=== PATIENT | male | born 2000 | race Caucasian/White ===

== ENCOUNTER 2025-02-27 15:45 | Emergency (ER) | payer SELFPAY ==
--- NOTE | ~2025-02-27 | XR_ITS ---
CLINICAL HISTORY: pain, injury Exam: AP, lateral, and spot lateral views of the lumbar spine. Comparison: None provided. Findings: Bony alignment of the lumbar vertebral bodies is anatomic. No fracture. Disc space heights are well preserved. Facet joints are unremarkable. Sacroiliac joints are unremarkable. Impression: No fracture. This document has been electronically signed by: Carlyle Todd MD on 02/27/2025 16:47:04
[2025-02-27 16:09] VITALS: BP 164/70; PULSE 88; RESP 16; TEMP 36.4; O2SAT 98; BMI 35.4
--- NOTE | 2025-02-27 16:11 | ED_ITS ---
HPI - General Adult General Chief complaint: Back Pain/Injury Stated complaint: back pain worsen V/N Time Seen by Provider: 02/27/25 17:16 Source: patient and other (patient's partner) Mode of arrival: ambulatory Limitations: no limitations History of Present Illness ED Provider: Barb Woodard PA-C HPI narrative: Patient is a 25 year old assigned male at , now female, with no reported medical history presenting to the emergency department today with back pain. Patient states that she has been having issues with back pain since July of 2024 but the last few days it has been significantly worse. Patient denies any other complaints at this time. Relieving factors: none Exacerbating factors: movement Treatments prior to arrival: other (Excedrin with no relief) Related Data Previous Rx's ?Medication ?Instructions ?Recorded cyclobenzaprine 5 mg tablet 5 mg PO TID PRN muscle spa sm 7 02/27/25 days #21 tabs naproxen 500 mg tablet 500 mg PO BID 7 days #14 tab s 02/27/25 omeprazole 20 mg capsule,delayed 20 mg PO DAILY #14 ca ps 02/27/25 release prednisone 20 mg tablet 20 mg PO DAILY 7 days #7 tab s 02/27/25 Allergies Allergy/AdvReac Type Severity Reaction Status Date / Time shellfish derived (shellfish) Allergy Anaphylaxis Verified 02/27/25 16:12 Review of Systems Constitutional: Constitutional: Reports as per HPI Eyes: Eyes: Reports as per HPI ENT: Reports as per HPI Cardiovascular: Cardiovascular: Reports as per HPI Respiratory: Respiratory: Reports as per HPI Gastrointestinal: Gastrointestinal: Reports as per HPI Genitourinary: Genitourinary: Reports as per HPI Musculoskeletal: Musculoskeletal: Reports back pain Integumentary/Breasts: Skin/Breast: Reports as per HPI Neurologic: Reports as per HPI Psychiatric: Psychiatric: Reports as per HPI Endocrine: Endocrine: Reports as per HPI Hematologic/Lymphatic: Hematologic/Lymphatic: Reports as per HPI Allergic/Immunologic: Allergic/Immunologic: Reports as per HPI PMFSH Past Medical History Attestation statement: The following information was validated with the patient. (all information validated with the patient's partner) Source: old records reviewed, nursing notes reviewed and other (patient's partner provided additional history and confirmed the history provided by the patient. ) Social History Social History Advance Directives: No Advance Directives Information Provided: No Do you have a plan to hurt others: No Plan Physical Exam ED Vital Signs: Vital Signs - 24 hr 02/27/25 16:09 02/27/25 17:29 Temperature 97.5 F 97.5 F Pulse Rate 88 88 Respiratory Rate 16 16 Blood Pressure 164/70 H 164/70 H Pulse Oximetry 98 98 Oxygen Delivery Method Room Air Room Air BMI result Body Mass Index 35.4 Const General: cooperative, no acute distress, alert and awake Nutritional Appearance: well nourished Orientation/consciousness: patient oriented x3 HENMT Head: Yes normal to inspection and Yes atraumatic Ears: hearing grossly normal bilaterally and external ears normal General nose exam: Normal external nose present, no nasal discharge noted and no epistaxis Face and sinus: Yes normal facial exam, No abrasion and No laceration Mouth: Normal oral and palatal mucosa present, no drooling and no muffled voice Eyes General: appearance normal, both eyes and all related structures Periorbital: periorbital findings normal Eyelids: Yes eyelids normal Conjunctivae: conjunctivae normal Pupils: Equal, round and reactive pupils present EOM: EOMs intact bilaterally Neck Neck: Yes normal visual inspection and Yes full ROM Resp Effort & Inspection: normal respiratory effort and able to speak in complete sentences Neuro General: patient oriented x3, moves all extremities and CN's II-XI intact bilaterally Cranial nerves: Yes Equal, round and reactive pupils present Cognition (Neuro): normal cognition Extrem General: Yes normal to inspection, Yes full ROM and Yes capillary refill normal Psych Appearance: grossly normal Mental Status: mental status grossly normal Affect: normal affect Attitude: cooperative Thought process: Normal thought process present Thought content: Normal thought content present Insight: Good insight present (Psych) Course Course Course Narrative: Rapid medical examination performed in triage by Barb Woodard PA-C. Patient is a 25 year old male, now female, presenting to the emergency department with low back pain. Patient states that over the last 7 months she has had back pain but over the last few days it has been worse and spreads into her legs / buttock. Detailed physical exam and review of systems are deferred to the electrical systems designer. Imaging ordered. Patient placed back in the waiting room pending room availability and results. Medical Decision Making Medical Decision Making MDM Narrative: Patient is a 25 year old assigned male at , now female, with no reported medical history presenting to the emergency department today with back pain. Patient's physical exam was unremarkable. Patient's lumbar x-ray showed no acute process. Patient's clinical presentation is most consistent with a bulging disc vs. lumbar back pain vs. lumbar back strain. I explained my physical exam findings as well as all test results to the patient and the patient's partner. I answered all questions asked by the patient and the patient's partner. I stressed the importance of the patient taking her medication as directed (either prescribed or as the over the counter packaging recommends). I stressed the importance of the patient following up with her primary care provider and a strategic communications specialist. I stressed the importance of the patient returning to the emergency department immediately if her symptoms were to worsen or if she were to develop any dizziness, shortness of breath, difficulty breathing, chest pain, blurry vision, loss of vision, nausea, vomiting, abdominal pain, fever, chills, back pain, or any other complaints. Patient and the patient's partner verbalized agreement and understanding with this treatment plan and discharge. Differential Diagnosis Differential Diagnoses: The differential diagnosis associated with the presentation includes Back pain Back strain Disc herniation Bulging disc Sciatica Admission/Observation Consideration of admission/observation: Escalation of care including admission/observation considered Patient would have been admitted to the hospital had her work up had any findings where hospital admission was appropriate and her clinical presentation warranted hospital admission. Independent Interpretation I performed an independent interpretation of an: Plain X-Ray Interpretation: My interpretation is in agreement with the radiologist's impression of this imaging study. CLINICAL HISTORY: pain, injury Exam: AP, lateral, and spot lateral views of the lumbar spine. Comparison: None provided. Findings: Bony alignment of the lumbar vertebral bodies is anatomic. No fracture. Disc space heights are well preserved. Facet joints are unremarkable. Sacroiliac joints are unremarkable. Impression: No fracture. This document has been electronically signed by: Carlyle Todd MD on 02/27/2025 16:47:04 Dictated By: Carlyle Todd MD Signed By: Electronically signed by Carlyle Todd MD 02/27/25 [id number] Radiology Impression Discussion of test interpretation with radiology: I have reviewed the radiologist's reading. Independent Historian Clinical information obtained from an independent historian. History obtained from or confirmed by: Other (patient's partner provided additional history and confirmed the history provided by the patient. ) Discharge Plan Discharge Clinical Impression: Back pain Patient Disposition: Home, Self-Care Instructions: Acute Low Back Pain (ED) Additional Instructions: Your x-ray today showed no acute process. I am suspicious this is a nerve issue originating in your back from either a bulging disc or inflammation. Take your medication as prescribed - wait to take your dose of omeprazole until 30 minutes after you take the rest of the medication. Follow up with a strategic communications specialist. IF you are prescribed medications and/or you are taking over the counter medications - it is very important you continue to do so as prescribed / directed unless told otherwise. Follow up with a primary care provider. Return to the emergency department immediately if your symptoms worsen or if you develop any numbness, tingling, dizziness, shortness of breath, difficulty breathing, chest pain, blurry vision, loss of vision, nausea, vomiting, abdominal pain, fever, chills, back pain, or any other complaints. If you do not have a primary care provider - call any of the below numbers to establish and follow up with a primary care provider. [facility] Primary Care ([place]) [phone] [place] [address], [address] [facility] Primary Care ([address] [place]) [phone] [place] [address], [address] [facility], [address] [facility] Primary Care ([address] [place]) [phone] [place] [address], [address] [facility], [address] [facility] Primary Care ([place]) [phone] [place] [address] 2 [facility], [address] [facility] Family Medicine [phone] [place] [address], [address] Please see the information below about our Patient Portal. If you are not yet enrolled in the [facility] Patient Portal, you will receive an enrollment email invitation following your visit to any [facility] setting. You may also self-enroll in the Patient Portal by visiting our website: [email or web address] The following information is required to access the Patient Portal: - Your [facility] Medical Record Number - Your personal home email address (must match what is in your electronic medical record, Registration staff can assist with this) - Name - Date of Capabilities of the Patient Portal: - Message some providers - View upcoming appointments - Access your health summary, medical history, and visit history - View current conditions and allergies - View procedure and lab results - View your medications, including guidelines, side effects, and precautions - Complete pre-appointment questionnaires requested by your provider - Ready summary reports of your office visits and procedures To access the Patient Portal Mobile Odin, follow these directions: - Search [facility] in the Doin Store or Google Simple Store - Download the Odin - Search for [facility] - Enter your login/password Prescriptions: New cyclobenzaprine 5 mg tablet 5 mg PO TID PRN (Reason: muscle spasm) 7 Days Qty: 21 0RF prednisone 20 mg tablet 20 mg PO DAILY 7 Days Qty: 7 0RF naproxen 500 mg tablet 500 mg PO BID 7 Days Qty: 14 0RF omeprazole 20 mg capsule,delayed release(DR/EC) 20 mg PO DAILY Qty: 14 0RF Referrals: [facility] Spine [facility] [Provider Group, Neurosurgery] Referral Note: Call to establish and follow up with a strategic communications specialist if your pain continues. Stand Alone Forms: Work/School Release Interventions: ED Discharge Assessment Last Done: 02/27/25 17:29 Discharge Date/Time: 02/27/25 17:30 Print Language: Serbian
[2025-02-27 17:29] VITALS: BP 164/70; PULSE 88; RESP 16; TEMP 36.4; O2SAT 98
== END 2025-02-27 17:30 | disposition home or self-care (01) ==
PROVIDERS: Emergency Provider Emergency Medicine Emergency Medical Services
DX: M54.50 Low back pain, unspecified (principal)
CPT/HCPCS: 72100; 99282; 99283

== ENCOUNTER → 2025-02-27 16:12 | Outpatient (BNV) | payer SELFPAY | PROVIDERS: Visit Provider Radiology Diagnostic Radiology | DX: M54.50 Low back pain, unspecified (principal) | CPT/HCPCS: 72100 ==

== ENCOUNTER 2025-03-29 23:05 | Emergency (ER) | payer SELFPAY ==
[2025-03-29 23:30] VITALS: BP 144/76; PULSE 78; RESP 18; TEMP 36.8; O2SAT 96; BMI 37.8
--- NOTE | 2025-03-30 00:12 | ED.ALLEREA ---
HPI - Allergic Reaction General Chief complaint: Allergic Reaction Stated complaint: allergic reaction Time Seen by Provider: 03/30/25 00:09 History of Present Illness ED Provider: Bhupinder Ayala MD HPI narrative: 25-year-old transgender female with a history of anaphylaxis no longer has EpiPen. Patient is currently taking spironolactone him on few other medications mostly psychiatric. No obvious recent exposures but several hours ago started feeling subjective tightness of the throat itchy rash of the neck. No smoking history denies asthma or bronchospasm in the past Related Data Previous Rx's ?Medication ?Instructions ?Recorded cyclobenzaprine 5 mg tablet 5 mg PO TID PRN muscle spasm 7 02/27/25 days #21 tabs naproxen 500 mg tablet 500 mg PO BID 7 days #14 tabs 02/27/25 omeprazole 20 mg capsule,delayed 20 mg PO DAILY #14 caps 02/27/25 release prednisone 20 mg tablet 20 mg PO DAILY 7 days #7 tabs 02/27/25 epinephrine 0.3 mg/0.3 mL 0.3 mg (0.3 mL) IM Q10M PRN 03/30/25 injection, auto-injector (EpiPen anaphylaxis #2 ea 2-Jono) prednisone 20 mg tablet 60 mg (3 x 20 mg) PO DAILY 2 days 03/30/25 #6 tabs Allergies Allergy/AdvReac Type Severity Reaction Status Date / Time shellfish derived (shellfish) Allergy Anaphylaxis Verified 03/29/25 23:32 [facility] Social History Social History Smoked in Last 30 Days: No Advance Directives: No Physical Exam ED Exam Exam: EXAM: Gen: Alert, awake, well appearing, well hydrated. Head: Atraumatic Eyes: Anicteric, Normal conjunctiva. ENT: Moist mucosa, no pallor. ?No objective oropharyngeal or lingual edema clear patent oropharynx midline uvula without edema. No stridor Neck: Supple. Skin: Mostly resolving very subtle erythema or splotchy induration of the neck without overt hives no other rash Respiratory: Perhaps scant expiratory only right-sided wheeze very very subtle Breathing comfortably, No distress.Clear to auscultation bilaterally, symmetric chest expansion, No wheeze, rales, ronchi. Cardiovascular: Regular rate and rhythm. No murmurs or rub. Well perfused periphery, warm extremities. No edema. ? Abdominal: No focal tenderness. Soft, no objective distension. No palpable masses or obvious organomegaly. ?No guarding, no rebound tenderness or other peritoneal findings. : No flank tenderness. Neuro: Alert. Gross movement of all extremities intact. ? Psych: Calm. Cooperative. MSK: No grossly visible deformity. Vital signs: See flowsheet Vital Signs: Vital Signs - 24 hr 03/29/25 23:30 03/30/25 00:25 Temperature 98.2 F Pulse Rate 78 84 Respiratory Rate 18 19 Blood Pressure 144/76 H 139/81 Pulse Oximetry 96 98 Oxygen Delivery Method Nasal Cannula Room Air BMI result Body Mass Index 37.8 Medications Administered Discontinued Medications Generic Name Dose Route Start Last Admin Trade Name Freq PRN Reason Stop Dose Admin Diphenhydramine HCl 50 mg 03/30/25 00:12 03/30/25 00:22 Diphenhydramine Hcl 25 Mg Capsule PO 03/30/25 00:13 50 mg ONCE ONE Administration Famotidine 20 mg 03/30/25 00:12 03/30/25 00:22 Famotidine 20 Mg Tablet PO 03/30/25 00:13 20 mg ONCE ONE Administration Prednisone 60 mg 03/30/25 00:12 03/30/25 00:22 Prednisone 20 Mg Tablet PO 03/30/25 00:13 60 mg ONCE ONE Administration Medical Decision Making Medical Decision Making MDM Narrative: 25-year-old transgender female is no obvious recent exposures spontaneous symptoms suggestive of allergic reaction. No distress hypoxia tachycardia or objective signs of upper airway or mouth/mucosal membrane edema. Empiric treatment with steroid antihistamine for possible mild moderate allergic reaction. Refill EpiPen for home brief monitoring discharge Discharge Plan Discharge Clinical Impression: Allergic reaction Patient Disposition: Home, Self-Care Instructions: General Allergic Reaction (ED) Additional Instructions: You had mild/moderate allergic reaction with skin rash subjective difficulty breathing We have repleted your epinephrine injectable Dosepaks you can carry these around with you in case you develop anaphylaxis symptoms. We have prescribed 2 more days of prednisone we recommend you take cetirizine [id number] antihistamine that does not sedate you over the next 2 days 10 mg per day. Prescriptions: New prednisone 20 mg tablet 60 mg PO DAILY 2 Days Qty: 6 0RF epinephrine [EpiPen 2-Jono] 0.3 mg/0.3 mL auto-injector 0.3 mg IM Q10M PRN (Reason: anaphylaxis) Qty: 2 0RF Rx Instructions: for 2 doses No Action cyclobenzaprine 5 mg tablet 5 mg PO TID PRN (Reason: muscle spasm) 7 Days Qty: 21 0RF prednisone 20 mg tablet 20 mg PO DAILY 7 Days Qty: 7 0RF naproxen 500 mg tablet 500 mg PO BID 7 Days Qty: 14 0RF omeprazole 20 mg capsule,delayed release(DR/EC) 20 mg PO DAILY Qty: 14 0RF Print Language: [place] Citizen
[2025-03-30 00:25] VITALS: BP 139/81; PULSE 84; RESP 19; O2SAT 98
[2025-03-30 01:50] VITALS: BP 139/81; PULSE 84; RESP 19; TEMP 36.7; O2SAT 98
== END 2025-03-30 01:52 | disposition home or self-care (01) ==
PROVIDERS: Emergency Provider Emergency Medicine
DX: L23.9 Allergic contact dermatitis, unspecified cause (principal); R21 Rash and other nonspecific skin eruption
CPT/HCPCS: 99283; 99284

== ENCOUNTER 2025-05-02 20:37 | Emergency (ER) | payer OTHER, SELFPAY ==
[2025-05-02 20:43] VITALS: BP 140/85; PULSE 110; RESP 16; TEMP 36.1; O2SAT 98; BMI 38.4
--- NOTE | 2025-05-02 20:48 | ECG_ITS ---
Test Reason : QTC CHECK Blood Pressure : */* mmHG Vent. Rate : 108 BPM Atrial Rate : 108 BPM P-R Int : 150 ms QRS Dur : 102 ms QT Int : 336 ms P-R-T Axes : 70 68 46 degrees QTcB Int : 450 ms Sinus tachycardia Otherwise normal ECG No previous ECGs available Referred By: Generic ED Physician Electronically Signed By: Chance Robert
[2025-05-02 21:07] LABS: MANUAL DIFF FLAG NO
[2025-05-02 21:08] LABS: Hematocrit 41.2 % (42.0-52.0); Hemoglobin 13.9 g/dl (14.0-18.0); Imm Gran Abs Auto 0.06 X10*3/uL (0.00-0.03); Imm Gran Pct Auto 0.6 % (0.0-0.4); Lymphocytes Absolute Auto 2.9 X10*3/uL (1.2-4.9); Mean Corpuscular HGB Conc 33.7 g/dl (31.0-36.0); Mean Corpuscular Hemoglobin 29.7 pg (27.0-33.0); Mean Corpuscular Volume 88.0 fL (80.0-98.0); NRBC Abs Auto 0.000 X10*3/uL (0.0-0.012); NRBC Pct Auto 0.0 /100WBC (0.0-0.2); Platelet Count 313 X10*3/uL (160-400); Red Blood Count 4.68 X10*6/uL (4.60-5.80); White Blood Count 10.3 X10*3/uL (4.8-10.8)
[2025-05-02 21:23] LABS: Alanine Aminotransferase 91 U/L (0-40); Albumin Level 5.0 g/dL (3.5-5.0); Alkaline Phosphatase 67 U/L (39-117); Anion Gap 16 (12-20); Aspartate Amino Transferase 54 U/L (5-37); Blood Urea Nitrogen 8 mg/dL (9-16); Calcium 9.6 mg/dL (8.4-10.2); Carbon Dioxide 23 mmol/L (22-29); Chloride 107 mmol/L (96-108); Creatinine Clr Calc Pharmacy 197.2; Estimated Glomerular Filt Rate > 60; Potassium 4.1 mmol/L (3.3-5.1); Sodium 142 mmol/L (135-145); Total Protein 7.9 g/dL (6.5-8.0)
[2025-05-02 21:26] LABS: Salicylate < 5.0 mg/dL (15-30)
[2025-05-02 21:28] LABS: COVID-19 Test Negative (Negative); IDNOW Serial# 152EDE1D
[2025-05-02 21:29] LABS: IDNOW Serial# 16C4AD1C; Influenza B2 Negative (Negative)
--- NOTE | 2025-05-02 23:00 | PC.NURSE ---
late entry- pt a&ox4, respirations even and unlabored. pt reports auditory and visual hallucinations starting today, reports they were seeing things that were not there while driving. pt denies both si/hi. [facility] pt changed over by tech and security and belongings placed in the cate port.
[2025-05-02 23:07] LABS: Appearance Urine Clear; Glucose Urine UA 100 mg/dL (Negative); PH >= 9.0 (5.0-9.0); Specific Gravity - Urine 1.020 (1.005-1.025)
[2025-05-02 23:17] LABS: Cannabinoid Screen Urine Not Detected (Not Detect)
[2025-05-03] VITALS: RESP 18
--- NOTE | 2025-05-03 02:38 | PC.NURSE ---
pt reports they would no longer like to stay in the ed and would come back in the am. pt encouraged to stay at this time as MD is coming to see pt, pt back in bed and MD at bedside
--- NOTE | 2025-05-03 02:50 | ED.PSYCH ---
HPI - Psych General Chief Complaint: Psychiatric Symptoms Stated Complaint: NINO COWAN Time Seen by Provider: 05/02/25 21:43 Source: patient, RN notes reviewed and old records reviewed Mode of arrival: ambulatory Limitations: no limitations History of Present Illness ED Provider: Dr. Leticia Solitario HPI Narrative: 25-year-old male with history of schizoaffective disorder, PTSD, anxiety presenting with ?psychotic episode? that started immediately prior to arrival. Patient states that he was driving around and started noticing hallucinations of animals in the road in front of him. Started noticing that he was slamming on his brakes frequently because he was afraid to hit an animal. There were no animals in the road. States that he feels as though his Seroquel and Effexor are not working although he has only been on the Seroquel for a couple of weeks now. Does see a therapist regularly. Has an appointment today (Friday05/03/2025). Denies suicidal or homicidal ideation. No drug or alcohol use. He does use nicotine and caffeine but his use has not changed recently. Denies physical illness including fever, cough or cold-type symptoms, nausea, vomiting, bowel changes or urinary complaints. Related Data Previous Rx's ?Medication ?Instructions ?Recorded cyclobenzaprine 5 mg tablet 5 mg PO TID PRN muscle spasm 7 02/27/25 days #21 tabs naproxen 500 mg tablet 500 mg PO BID 7 days #14 tabs 02/27/25 omeprazole 20 mg capsule,delayed 20 mg PO DAILY #14 caps 02/27/25 release prednisone 20 mg tablet 20 mg PO DAILY 7 days #7 tabs 02/27/25 epinephrine 0.3 mg/0.3 mL 0.3 mg (0.3 mL) IM Q10M PRN 03/30/25 injection, auto-injector (EpiPen anaphylaxis #2 ea 2-Jono) prednisone 20 mg tablet 60 mg (3 x 20 mg) PO DAILY 2 days 03/30/25 #6 tabs Allergies Allergy/AdvReac Type Severity Reaction Status Date / Time shellfish derived (shellfish) Allergy Anaphylaxis Verified 05/02/25 20:48 Review of Systems Review of Systems: as per HPI, full review of systems performed and negative but for the above mentioned pertinent positives and negatives. [facility] Social History Social History Alcohol intake: never Smoked in Last 30 Days: No Use of substances other than those prescribed or required for medical reasons: No Advance Directives: No Advance Directives Information Provided: No Do you have a plan to hurt others: No Plan Physical Exam Exam: Exam: GENERAL: Nontoxic appearing, no acute distress. SKIN: Normal skin color for ethnicity, warm, dry, no rashes noted. HEENT:? Normocephalic, atraumatic, no stridor, posterior oropharynx nonerythematous, dentition intact, EOMI. NECK: Soft, supple, full ROM, midline structures nontender, no step-offs, no deformities, no lymphadenopathy. CHEST: Heart regular rate and rhythm, no murmurs, symmetric chest rise and fall. PULMONARY: Clear to auscultation bilaterally, no labored breathing, no wheezes/rhales/rhonchi. ABDOMINAL: Soft, nondistended, nontender, positive bowel sounds in all quadrants. : Deferred. MUSCULOSKELETAL: Normal tone, full range of motion, no deformities, no peripheral edema. NEURO: Alert and oriented x3, CN II through XII intact, equal strength and sensation bilateral upper and lower extremities, no focal neurologic deficits.? PSYCHIATRIC: Flat affect, good eye contact, depressed mood Vital Signs: Vital Signs: Last Vital Signs Temp 97.0 F 05/02/25 20:43 Pulse 110 H 05/02/25 20:43 Resp 16 05/02/25 20:43 BP 140/85 H 05/02/25 20:43 Pulse Ox 98 05/02/25 20:43 O2 Del Method Room Air 05/02/25 20:43 BMI result Body Mass Index 38.4 Medical Decision Making Medical Decision Making MDM Narrative: Patient presents with psychologic complaints. Differential diagnosis includes suicidal ideations, homicidal ideations, depression, anxiety, mood disorder, decompensated mental illnesses such as schizophrenia or bipolar disorder, medication noncompliance, among many others. Medical clearance protocol was initiated. 4:45 AM 05/03/2025 (Dr. Leticia Solitario, D.O.) patient is reporting feeling anxious, requesting discharge at this time. They are of capacity to make decisions and I feel comfortable with discharge since [facility] medically [facility]. There is no suicidal ideation. No homicidal ideation. No thoughts of self-harm. Plan for discharge, [place] follow up as discussed. Discharged in stable, improved condition. Girlfriend will pick them up. Differential Diagnosis Differential Diagnoses: The differential diagnosis associated with the presentation includes (As above) Admission/Observation Consideration of admission/observation: Escalation of care including admission/observation considered Lab Data MDM Lab Attestation statement: I reviewed the patient's lab results. 05/02/25 21:01 05/02/25 21:01 Labs: Lab Results 05/02/25 05/02/25 Range/Units 21: 23:01 WBC 10.3 (4.8-10.8) X10*3/uL RBC 4.68 (4.60-5.80) X10*6/uL Hgb 13.9 L (14.0-18.0) g/dl Hct 41.2 L (42.0-52.0) % MCV 88.0 (80.0-98.0) fL MCH 29.7 (27.0-33.0) pg MCHC 33.7 (31.0-36.0) g/dl RDW 12.2 (11.0-16.0) % Plt Count 313 (160-400) X10*3/uL MPV 10.0 (9.4-12.4) fL Immature Gran % (Auto) 0.6 H (0.0-0.4) % Neut % (Auto) 57.9 (45-73) % Lymph % (Auto) 28.4 (20-40) % [place] % (Auto) 10.8 (2-11) % Eos % (Auto) 1.6 (0-4) % Baso % (Auto) 0.7 (0-2) % Lymph # (Auto) 2.9 (1.2-4.9) X10*3/uL [place] # (Auto) 1.1 (0.1-1.2) X10*3/uL Eos # (Auto) 0.2 (0.0-0.4) X10*3/uL Baso # (Auto) 0.1 (0.0-0.2) X10*3/uL Abs Immat Gran (auto) 0.06 H (0.00-0.03) X10*3/uL Absolute Neuts (auto) 6.0 (2.0-8.3) x10*3/uL Absolute Nucleated RBC 0.000 (0.0-0.012) X10*3/uL Nucleated RBC % (auto) 0.0 (0.0-0.2) /100WBC Sodium 142 (135-145) mmol/L Potassium 4.1 (3.3-5.1) mmol/L Chloride 107 (96-108) mmol/L Carbon Dioxide 23 (22-29) mmol/L Anion Gap 16 (12-20) BUN 8 L (9-16) mg/dL Creatinine 0.80 (0.5-1.4) mg/dL Estim Creat Clear Calc 197.2 Estimated GFR > 60 Random Glucose 76 (60-115) mg/dL Calcium 9.6 (8.4-10.2) mg/dL Total Bilirubin 0.5 (0.0-1.0) mg/dL AST 54 H (5-37) U/L ALT 91 H (0-40) U/L Alkaline Phosphatase 67 (39-117) U/L Total Protein 7.9 (6.5-8.0) g/dL Albumin 5.0 (3.5-5.0) g/dL Urine Color Yellow Urine Appearance Clear Urine pH >= 9.0 (5.0-9.0) Ur Specific [place] 1.020 (1.005-1.025) Urine Protein Negative (Neg-Trace) mg/dL Urine Glucose (UA) 100 H (Negative) mg/dL Urine Ketones Negative (Negative) mg/dL Urine Blood Negative (Negative) Urine Nitrite Negative (Negative) Ur Leukocyte Esterase Negative (Negative) Salicylates < 5.0 L (15-30) mg/dL Urine Opiates Screen Not Detected (Not Detect) Ur Buprenorphine Scrn Not Detected (Not Detect) ng/mL Ur Oxycodone Screen Not Detected (Not Detect) ng/mL Urine Methadone Screen Not Detected (Not Detect) ng/mL Urine Fentanyl Screen Not Detected (Not Detect) Ur Barbiturates Screen Not Detected (Not Detect) Ur Phencyclidine Scrn Not Detected (Not Detect) Ur Amphetamines Screen Not Detected (Not Detect) U Benzodiazepines Scrn Not Detected (Not Detect) Urine Cocaine Screen Not Detected (Not Detect) U Marijuana (THC) Screen Not Detected (Not Detect) Ethyl Alcohol < 10 mg/dL COVID-19 (ALEKSEY) Negative (Negative) COVID-19 Clin Com See Note Influenza Type A (NISA) Negative (Negative) Influenza Type B (NISA) Negative (Negative) Influenza A & B Note See Note External Record Review External record reviewed: Inpatient record Chronic Conditions Patient?s care impacted by: Other (PTSD, schizoaffective disorder) Social Determinants Patient?s care significantly limited by Social Determinants of Health including: Problems related to primary support group, Unemployment and Other Social Determinant of Health Discharge Plan Discharge Clinical Impression: Visual hallucinations, Acute psychosis Patient Disposition: Home, Self-Care Instructions: Hallucinations (ED) Additional Instructions: You were seen in our Emergency Department today for treatment of a behavioral health issue. It is important after your visit that you follow up with either your behavioral health provider or a primary care doctor within 7 days.? If you have trouble finding a therapist you can reach out to [place] [phone] [facility] [place] [facility] can be reached 7 days a week 24 hours a day.? Call [phone] to speak with someone.? Return for any worsening symptoms or concerns such as thoughts of self harm or harm to others. Please call 911 if you feel your mental health is worsening.? Prescriptions: No Action cyclobenzaprine 5 mg tablet 5 mg PO TID PRN (Reason: muscle spasm) 7 Days Qty: 21 0RF prednisone 20 mg tablet 20 mg PO DAILY 7 Days Qty: 7 0RF naproxen 500 mg tablet 500 mg PO BID 7 Days Qty: 14 0RF omeprazole 20 mg capsule,delayed release(DR/EC) 20 mg PO DAILY Qty: 14 0RF prednisone 20 mg tablet 60 mg PO DAILY 2 Days Qty: 6 0RF epinephrine [EpiPen 2-Jono] 0.3 mg/0.3 mL auto-injector 0.3 mg IM Q10M PRN (Reason: anaphylaxis) Qty: 2 0RF Rx Instructions: for 2 doses Interventions: [place]-Suicide Risk Severity Scale Last Done: 05/02/25 22:47 Print Language: Persian
--- NOTE | 2025-05-03 04:45 | PC.NURSE ---
pt requesting to leave at this time as they continue to not want to wait for careteam assessment, MD Solitario at bedside to discuss plan with pt. pt states they would like to leave and is calling girlfriend for ride
[2025-05-03 04:58] VITALS: BP 122/78; PULSE 77; RESP 15; TEMP 36.6; O2SAT 99
== END 2025-05-03 05:19 | disposition home or self-care (01) ==
PROVIDERS: Emergency Provider Emergency Medicine; PCP Internal Medicine; Referring Provider Emergency Medicine
DX: F23 Brief psychotic disorder (principal); F25.9 Schizoaffective disorder, unspecified; F43.10 Post-traumatic stress disorder, unspecified; F41.9 Anxiety disorder, unspecified; Z79.899 Other long term (current) drug therapy
CPT/HCPCS: 80053; 80179; 80307; 81003; 85025; 87502; 87635; 93005; 99285

== ENCOUNTER → 2025-05-02 20:48 | Outpatient (BNV) | payer OTHER, SELFPAY | PROVIDERS: Emergency Provider Emergency Medicine; PCP Internal Medicine; Visit Provider Internal Medicine Cardiovascular Disease | DX: R00.0 Tachycardia, unspecified (principal) | CPT/HCPCS: 93010 ==

== ENCOUNTER 2025-05-20 16:02 | Emergency (ER) | payer OTHER, SELFPAY ==
--- NOTE | ~2025-05-20 | CT_ITS ---
CLINICAL HISTORY: Abdominal pain, bloody diarrhea, R O IBS, colitis CT abdomen and pelvis with contrast Comparison: None provided Findings: Mild right basilar atelectasis/pneumonitis in the posterior basal segments of the right lower lobe. Steatotic change of the fat deposition of the liver. Gallbladder is unremarkable for CT. Adrenal glands and pancreas partly obscured and otherwise unremarkable. The spleen is nonenlarged. No hydronephrosis. Mild fluid and stranding about celiac axis and SMA vessels nonspecific and can be associated with pancreatitis. Mild mary ellen mesentery also considered with small mesenteric lymph nodes. No small bowel obstruction. Fluid in the cecum can be seen with diarrhea type illnesses and mild colitis. Imaged appendix is within normal limits (66 of series 3). Moderate distention of the urinary bladder. Prostate gland is partly obscured and likely measures 3 cm transverse. Transitional vertebral anatomy of the lumbosacral junction. Small Schmorl's nodes noted, particularly imaged thoracic vertebrae. Ligament calcifications also present. Sclerosis of the proximal right femur due to bone island. IMPRESSION: 1. Fluid in the large intestine is nonspecific and can be seen with diarrhea type illnesses and colitis. 2. No small bowel obstruction. 3. Mild fluid in the upper abdomen is nonspecific. Differential considerations include mild mary ellen mesentery and mild pancreatitis. This document has been electronically signed by: Aaron Summers MD on 05/20/2025 21:39:26
[2025-05-20 16:10] VITALS: BP 134/64; PULSE 86; RESP 18; TEMP 36.1; O2SAT 100; BMI 37.3
--- NOTE | 2025-05-20 16:12 | ED_ITS ---
HPI - General Adult General Chief complaint: Nausea/Vomiting/Diarrhea Stated complaint: sent from urgent care, needs ct Time Seen by Provider: 05/20/25 18:30 Source: patient Mode of arrival: ambulatory Limitations: no limitations History of Present Illness ED Provider: Dr. Ethan Fitzpatrick HPI narrative: 5-year-old female with male assigned gender a with history of schizoaffective disorder, psychosis with visual and auditory hallucinations, PTSD, anxiety was referred to the emergency department from an urgent care clinic to evaluate abdominal pain and diarrhea. Patient states that she has had abdominal pain and diarrhea for proximally 1.5 weeks. She states that the pain is a constant, sharp/dull pain which is 7/10 at its worst in his currently 4 to 5/10 at the time of the evaluation patient states she has had anywhere from 7-12 soft dark, matias watery stools with 712 episodes per day. She states that last night the stools turned bloody. She states he has had nausea but no vomiting. Denied chest pain or shortness of breath. She does feel lightheaded and dizzy. The patient was seen in the emergency department on 05/03/2025 for acute psychosis with auditory and visual hallucinations. Related Data Previous Rx's ?Medication ?Instructions ?Recorded cyclobenzaprine 5 mg tablet 5 mg PO TID PRN muscle spa sm 7 02/27/25 days #21 tabs naproxen 500 mg tablet 500 mg PO BID 7 days #14 tab s 02/27/25 omeprazole 20 mg capsule,delayed 20 mg PO DAILY #14 ca ps 02/27/25 release prednisone 20 mg tablet 20 mg PO DAILY 7 days #7 tab s 02/27/25 epinephrine 0.3 mg/0.3 mL 0.3 mg (0.3 mL) IM Q10M PRN 03/30/25 injection, auto-injector (EpiPen anaphylaxis #2 ea 2-Jono) prednisone 20 mg tablet 60 mg (3 x 20 mg) PO DAILY 2 days 03/30/25 #6 tabs ondansetron 4 mg disintegrating 4 mg PO Q6-8H PRN naus ea and 05/20/25 tablet vomiting #14 tabs Allergies Allergy/AdvReac Type Severity Reaction Status Date / Time shellfish derived (shellfish) Allergy Anaphylaxis Verified 05/20/25 16:18 Review of Systems 2 Review of Systems: Yes all other systems are reviewed and are negative [facility] Past Medical History [facility] Narrative: Social history: Patient smokes 1 pack of cigarettes per week. Patient occasionally drinks alcohol. Denies drug use. Social History Social History Alcohol intake: never Smoked in Last 30 Days: Yes Use of substances other than those prescribed or required for medical reasons: No Advance Directives: No Advance Directives Information Provided: No Physical Exam ED Vital Signs: Vital Signs - 24 hr 05/20/25 16:10 05/20/25 17:28 05/20/25 20:50 Temperature 97 F 97.9 F 97.7 F Pulse Rate 86 71 76 Respiratory Rate 18 20 16 Blood Pressure 134/64 138/67 115/52 L Pulse Oximetry 100 97 98 Oxygen Delivery Method Room Air Room Air Room Air BMI result Body Mass Index 37.3 Vital signs were normal Exam: General: Awake, alert in no distress, weight 124.7 kg, elevated BMI 37.3 kilograms/meter squared Head: Normocephalic, atraumatic EENT: PERRL, sclera and conjunctiva are normal, mouth with no erythema or exudates Neck: Supple, no adenopathy Lung: breath sounds symmetric, no wheezing, no rales and no rhonchi Chest: symmetric movement, nontender Heart: regular rate and rhythm, normal S1, S2 no murmurs or rubs Abdomen: soft, moderate right upper and right lower quadrant tenderness, mild diffuse tenderness, normoactive bowel sounds, no rebound, no voluntary or involuntary guarding Back: no vertebral tenderness, no CVAT Extremities: no deformities, moves all extremities symmetrically, no edema Neuro: Awake, alert, oriented, normal speech, cranial nerves 2-12 intact, moves all extremities symmetrically Psych: Pleasant, cooperative Course Course Course Narrative: This is a Rapid Medical Examination (RME) performed by Lazaro Sierra PA-C in triage. Full HPI, ROS, assessment and treatment plan per primary provider in the Main ED. Hx: 25 yo M here for eval of diarrhea x1.5 weeks. assoc central abdominal pain. noticed bright red blood in the toilet bowl w/ his BM today. seen at , sent here for imaging. no hx abd surgeries. Plan: labs, will defer imaging Medications Administered Discontinued Medications Generic Name Dose Route Start Last Admin Trade Name Sudhakar PRN Reason Stop Dose Admin Sodium Chloride 1,000 mls @ 999 mls/hr 05/20/25 18:52 05/20/25 19:43 Ns IV 05/20/25 19:52 999 mls/hr .Q1H1M STA Administration Iohexol 85 ml 05/20/25 20:12 05/20/25 20:13 Iohexol 350 Mg/Ml 100 Ml Infus..Btl IV 05/20/25 20:13 85 ml ONCE ONE Administration Ketorolac Tromethamine 15 mg 05/20/25 18:52 05/20/25 19:39 Ketorolac Tromethamine 15 Mg/Ml Vial IVPUSH 05/20/25 18:53 15 mg ONCE STA Administration Ondansetron HCl 4 mg 05/20/25 18:52 05/20/25 19:39 Ondansetron Hcl 4 Mg/2 Ml Vial IVPUSH 05/20/25 18:53 4 mg ONCE ONE Administration Medical Decision Making Medical Decision Making [facility] Narrative: 25-year-old female with male assigned gender a with history of schizoaffective disorder, psychosis with visual and auditory hallucinations, PTSD, anxiety was referred to the emergency department from an urgent care clinic to evaluate abdominal pain and diarrhea. Patient states that she has had abdominal pain and diarrhea for proximally 1.5 weeks. She states that the pain is a constant, sharp/dull pain which is 7/10 at its worst in his currently 4 to 5/10 at the time of the evaluation patient states she has had anywhere from 7-12 soft dark, matias watery stools with 712 episodes per day. She states that last night the stools turned bloody. She states he has had nausea but no vomiting. Denied chest pain or shortness of breath. She does feel lightheaded and dizzy. Vital signs were unremarkable. Differential diagnosis: ?Includes but is not limited to gastritis, pancreatitis, diverticulitis, Crohn's disease, ulcerative colitis, viral syndrome, anemia, electrolyte abnormalities Course: 23:15 My interpretation patient's laboratory evaluation is as follows: Normocytic anemia with an H&H of 12.9 and 37.6. Elevated AST and ALT 97 and 169. Normal lipase. ESR was normal 12. CRP elevated 0.89. CT scan of the abdomen pelvis revealed fatty liver and mild colitis with no evidence for inflammatory bowel disease. Patient was treated with Toradol 15 mg IV, Zofran 4 mg IV and normal saline x1 L. Patient states that his pain improved and he does not want any further pain medications . I did discuss the CT scan results, laboratory evaluation and elevated AST and ALT with the patient. I also discussed fatty liver with him as well. Patient was advised to take Imodium as directed. He was prescribed Zosyn 4 mg ODT q.6 hours as needed for nausea and vomiting. He was given printed and verbal instructions and discharged home. Differential Diagnosis Differential Diagnoses: The differential diagnosis associated with the presentation includes (See above) Admission/Observation Consideration of admission/observation: Escalation of care including admission/observation considered (Yes) Lab Data MDM Lab Attestation statement: I reviewed the patient's lab results. 05/20/25 16:32 05/20/25 16:32 Labs: Lab Results 05/20/25 Range/Units 16:32 WBC 8.3 (4.8-10.8) X10*3/uL RBC 4.28 L (4.60-5.80) X10*6/uL Hgb 12.9 L (14.0-18.0) g/dl Hct 37.6 L (42.0-52.0) % MCV 87.9 (80.0-98.0) fL MCH 30.1 (27.0-33.0) pg MCHC 34.3 (31.0-36.0) g/dl RDW 12.3 (11.0-16.0) % Plt Count 312 (160-400) X10*3/uL MPV 9.8 (9.4-12.4) fL Immature Gran % (Auto) 0.5 H (0.0-0.4) % Neut % (Auto) 46.5 (45-73) % Lymph % (Auto) 39.4 (20-40) % [place] % (Auto) 10.0 (2-11) % Eos % (Auto) 2.8 (0-4) % Baso % (Auto) 0.8 (0-2) % Lymph # (Auto) 3.3 (1.2-4.9) X10*3/uL [place] # (Auto) 0.8 (0.1-1.2) X10*3/uL Eos # (Auto) 0.2 (0.0-0.4) X10*3/uL Baso # (Auto) 0.1 (0.0-0.2) X10*3/uL Abs Immat Gran (auto) 0.04 H (0.00-0.03) X10*3/uL Absolute Neuts (auto) 3.9 (2.0-8.3) x10*3/uL Absolute Nucleated RBC 0.000 (0.0-0.012) X10*3/uL Nucleated RBC % (auto) 0.0 (0.0-0.2) /100WBC ESR 12 (0-15) MM/HR Sodium 140 (135-145) mmol/L Potassium 3.8 (3.3-5.1) mmol/L Chloride 108 (96-108) mmol/L Carbon Dioxide 25 (22-29) mmol/L Anion Gap 11 L (12-20) BUN 9 (9-16) mg/dL Creatinine 0.88 (0.5-1.4) mg/dL Estim Creat Clear Calc 176.5 Estimated GFR > 60 Random Glucose 98 (60-115) mg/dL Calcium 9.4 (8.4-10.2) mg/dL Magnesium 2.1 (1.6-2.6) mg/dL Total Bilirubin 1.0 (0.0-1.0) mg/dL AST 97 H (5-37) U/L ALT 169 H (0-40) U/L Alkaline Phosphatase 50 (39-117) U/L C-Reactive Protein 0.89 H (< or = 0.50) mg/dL Total Protein 7.3 (6.5-8.0) g/dL Albumin 4.7 (3.5-5.0) g/dL Lipase 21 (8-78) U/L Radiology Impression Discussion of test interpretation with radiology: I have reviewed the radiologist's reading. Radiologist Impression: CT abdomen and pelvis with contrast Comparison: None provided Findings: Mild right basilar atelectasis/pneumonitis in the posterior basal segments of the right lower lobe. Steatotic change of the fat deposition of the liver. Gallbladder is unremarkable for CT. Adrenal glands and pancreas partly obscured and otherwise unremarkable. The spleen is nonenlarged. No hydronephrosis. Mild fluid and stranding about celiac axis and SMA vessels nonspecific and can be associated with pancreatitis. Mild mary ellen mesentery also considered with small mesenteric lymph nodes. No small bowel obstruction. Fluid in the cecum can be seen with diarrhea type illnesses and mild colitis. Imaged appendix is within normal limits (66 of series 3). Moderate distention of the urinary bladder. Prostate gland is partly obscured and likely measures 3 cm transverse. Transitional vertebral anatomy of the lumbosacral junction. Small Schmorl's nodes noted, particularly imaged thoracic vertebrae. Ligament calcifications also present. Sclerosis of the proximal right femur due to bone island. IMPRESSION: 1. Fluid in the large intestine is nonspecific and can be seen with diarrhea type illnesses and colitis. 2. No small bowel obstruction. 3. Mild fluid in the upper abdomen is nonspecific. Differential considerations include mild mary ellen mesentery and mild pancreatitis. This document has been electronically signed by: Aaron Summers MD on 05/20/2025 21:39:26 Prescription Management I considered prescription management with: Other (Antiemetic: Zofran ODT) Discharge Plan Discharge Clinical Impression: Colitis, Diarrhea, Fatty infiltration of liver Instructions: Acute Diarrhea (ED) Additional Instructions: Your CT scan revealed mild colitis but no evidence for inflammatory bowel disease (Crohn's disease or ulcerative colitis). Your inflammatory markers (ESR and CRP) were not significantly elevated which is reassuring, again suggesting that you do not have inflammatory bowel disease as the cause of the diarrhea. Your diarrhea is most likely caused by either a viral infection or bacterial infection. These are usually not treated with antibiotics and are self-limited and will get better. However sometimes diarrhea can last for weeks. For diarrhea I want you to take Imodium 2 mg pills. ?Take 2 pills after the 1st loose, diarrheal stool then 1 pill after each loose, diarrheal stool up to 8 pills per day. ?This usually stops diarrhea within 24 hours. Take Zofran ODT 4 mg pills, 1 pill dissolved in your mouth every 8 hours as needed for nausea and vomiting. Increase your fluid intake to prevent dehydration. You did have mild elevation of your liver enzymes (AST and ALT). Your AST was 97 (normal is 5-37) Your ALT was 169 (normal is 0-40) The CT scan did reveal fatty liver (steatosis) and sometimes this can be a cause for your elevated liver enzymes. Do not drink alcohol and do not take Tylenol since he has can sometimes cause your liver enzymes to get elevated as well. I want you [facility] to get repeat liver tests. Please return to the emergency department if your symptoms get worse or if you develop any symptoms that are concerning to you. Prescriptions: New ondansetron 4 mg tablet,disintegrating 4 mg PO Q6-8H PRN (Reason: nausea and vomiting) Qty: 14 0RF No Action cyclobenzaprine 5 mg tablet 5 mg PO TID PRN (Reason: muscle spasm) 7 Days Qty: 21 0RF prednisone 20 mg tablet 20 mg PO DAILY 7 Days Qty: 7 0RF naproxen 500 mg tablet 500 mg PO BID 7 Days Qty: 14 0RF omeprazole 20 mg capsule,delayed release(DR/EC) 20 mg PO DAILY Qty: 14 0RF prednisone 20 mg tablet 60 mg PO DAILY 2 Days Qty: 6 0RF epinephrine [EpiPen 2-Jono] 0.3 mg/0.3 mL auto-injector 0.3 mg IM Q10M PRN (Reason: anaphylaxis) Qty: 2 0RF Rx Instructions: for 2 doses Print Language: Kiswahili
[2025-05-20 16:36] LABS: MANUAL DIFF FLAG NO
[2025-05-20 16:38] LABS: Hematocrit 37.6 % (42.0-52.0); Hemoglobin 12.9 g/dl (14.0-18.0); Imm Gran Abs Auto 0.04 X10*3/uL (0.00-0.03); Imm Gran Pct Auto 0.5 % (0.0-0.4); Lymphocytes Absolute Auto 3.3 X10*3/uL (1.2-4.9); Mean Corpuscular HGB Conc 34.3 g/dl (31.0-36.0); Mean Corpuscular Hemoglobin 30.1 pg (27.0-33.0); Mean Corpuscular Volume 87.9 fL (80.0-98.0); NRBC Abs Auto 0.000 X10*3/uL (0.0-0.012); NRBC Pct Auto 0.0 /100WBC (0.0-0.2); Platelet Count 312 X10*3/uL (160-400); Red Blood Count 4.28 X10*6/uL (4.60-5.80); White Blood Count 8.3 X10*3/uL (4.8-10.8)
[2025-05-20 16:53] LABS: Albumin Level 4.7 g/dL (3.5-5.0); Alkaline Phosphatase 50 U/L (39-117); Anion Gap 11 (12-20); Aspartate Amino Transferase 97 U/L (5-37); Blood Urea Nitrogen 9 mg/dL (9-16); Calcium 9.4 mg/dL (8.4-10.2); Carbon Dioxide 25 mmol/L (22-29); Chloride 108 mmol/L (96-108); Creatinine Clr Calc Pharmacy 176.5; Estimated Glomerular Filt Rate > 60; Lipase 21 U/L (8-78); Magnesium 2.1 mg/dL (1.6-2.6); Potassium 3.8 mmol/L (3.3-5.1); Sodium 140 mmol/L (135-145); Total Protein 7.3 g/dL (6.5-8.0)
[2025-05-20 17:05] LABS: Alanine Aminotransferase 169 U/L (0-40)
[2025-05-20 17:28] VITALS: BP 138/67; PULSE 71; RESP 20; TEMP 36.6; O2SAT 97
[2025-05-20 19:43] LABS: Erythrocyte Sedimentation Rate 12 MM/HR (0-15)
[2025-05-20] MEDS: iohexoL 350 MG/ML 100 ML INFUS..BTL 85 ML IV (20:13)
[2025-05-20 20:50] VITALS: BP 115/52; PULSE 76; RESP 16; TEMP 36.5; O2SAT 98
[2025-05-21 00:10] VITALS: BP 115/52; PULSE 76; RESP 16; TEMP 36.5
== END 2025-05-21 00:11 | disposition home or self-care (01) ==
PROVIDERS: Physician Assistant Medical; Emergency Provider Emergency Medicine Emergency Medical Services; PCP Internal Medicine; Referring Provider Emergency Medicine Emergency Medical Services
DX: K52.9 Noninfective gastroenteritis and colitis, unspecified (principal); K76.0 Fatty (change of) liver, not elsewhere classified; R10.9 Unspecified abdominal pain
CPT/HCPCS: 36415; 74177; 80053; 83690; 83735; 85025; 85652; 86140; 96361; 96374; 96375; 99284; J1885; J2405; Q9967

== ENCOUNTER → 2025-05-20 18:55 | Outpatient (BNV) | payer OTHER, SELFPAY | PROVIDERS: Emergency Provider Emergency Medicine Emergency Medical Services; PCP Internal Medicine; Visit Provider Radiology Neuroradiology | DX: R10.84 Generalized abdominal pain (principal); R19.7 Diarrhea, unspecified | CPT/HCPCS: 74177 ==

== ENCOUNTER 2025-05-26 17:14 | Emergency (ER) | payer OTHER, SELFPAY ==
--- NOTE | ~2025-05-26 | CT_ITS ---
CLINICAL HISTORY: Persistent bloody diarrhea and diffuse abdominal SCAN 11:20pm CT abdomen and pelvis with contrast Comparison: CT/SR - CT ABDOMEN PELVIS W IV CON - 05/20/25 20:08 EDT Findings: No consolidation or effusion. Hepatic steatosis. Contracted gallbladder. Spleen, pancreas, and adrenal glands are within normal limits. No hydronephrosis. Symmetric contrast enhancement of the kidneys. Oral contrast is seen through the cecum. No extraluminal contrast. No bowel obstruction, pneumatosis or pneumoperitoneum. No bowel wall thickening. Pelvic contents unremarkable. Normal appendix. The bones are intact. IMPRESSION: 1. No acute intraabdominal or pelvic findings. This document has been electronically signed by: Jay Mauricio MD on 05/27/2025 01:04:31
--- NOTE | 2025-05-26 17:35 | ED_ITS ---
HPI - General Adult General Chief complaint: Abdominal Pain Stated complaint: vomiting, blood in stool Time Seen by Provider: 05/26/25 20:51 History of Present Illness ED Provider: Bhupinder Ayala MD HPI narrative: 25-year-old transgender female with week of persistent nausea occasional nonbloody nonbilious vomiting and 2-3 episodes of what are described as occasionally dark and sometimes streaking bright red blood in the stool no episodes today. Eating little bit last. Diffuse moderate abdominal pain described. No fevers. Taking Imodium not relieving. Was here week ago got a CT showed a diarrhea illness and nonspecific mesenteric findings which I reviewed. No recent antibiotics no recent travel no sick contacts no blood thinners no prior colonoscopy Related Data Previous Rx's ?Medication ?Instructions ?Recorded cyclobenzaprine 5 mg tablet 5 mg PO TID PRN muscle spa sm 7 02/27/25 days #21 tabs naproxen 500 mg tablet 500 mg PO BID 7 days #14 tab s 02/27/25 omeprazole 20 mg capsule,delayed 20 mg PO DAILY #14 ca ps 02/27/25 release prednisone 20 mg tablet 20 mg PO DAILY 7 days #7 tab s 02/27/25 epinephrine 0.3 mg/0.3 mL 0.3 mg (0.3 mL) IM Q10M PRN 03/30/25 injection, auto-injector (EpiPen anaphylaxis #2 ea 2-Jono) prednisone 20 mg tablet 60 mg (3 x 20 mg) PO DAILY 2 days 03/30/25 #6 tabs ondansetron 4 mg disintegrating 4 mg PO Q6-8H PRN naus ea and 05/20/25 tablet vomiting #14 tabs Allergies Allergy/AdvReac Type Severity Reaction Status Date / Time shellfish derived (shellfish) Allergy Anaphylaxis Verified 05/26/25 17:39 [facility] Social History Social History Alcohol intake: never Smoked in Last 30 Days: No Advance Directives: No Advance Directives Information Provided: No Do you have a plan to hurt others: No Plan Physical Exam ED Exam Exam: EXAM: Gen: Alert, awake, well appearing, well hydrated. Head: Atraumatic Eyes: Anicteric, Normal conjunctiva. ENT: Moist mucosa, no pallor. ? Neck: Supple. Skin: ?No observable rash or bruising on exposed or examined skin Respiratory: Breathing comfortably, No distress.Clear to auscultation bilaterally, symmetric chest expansion, No wheeze, rales, ronchi. Cardiovascular: Regular rate and rhythm. No murmurs or rub. Well perfused periphery, warm extremities. No edema. ? Abdominal: Moderate diffuse tenderness but no peritoneal signs. Soft, no objective distension. No palpable masses or obvious organomegaly. ?No guarding, no rebound tenderness : No flank tenderness. Neuro: Alert. Gross movement of all extremities intact. ? Psych: Calm. Cooperative. MSK: No grossly visible deformity. Vital signs: See flowsheet Vital Signs: Vital Signs - 24 hr 05/26/25 17:37 05/26/25 19:51 05/26/25 23:13 Temperature 97 F 97.6 F Pulse Rate 85 83 77 Respiratory Rate 18 16 18 Blood Pressure 136/76 111/57 L 118/75 Pulse Oximetry 96 98 99 Oxygen Delivery Method Room Air Room Air Room Air BMI result Body Mass Index 38.4 Course Course Course Narrative: Rapid medical examination performed in triage by Barb Woodard PA-C: Patient is a 25 year old assigned male at , now female, presenting to the emergency department with nausea, vomiting, and bloody diarrhea. Detailed physical exam and review of systems are deferred to the prevention coordinator. Labs ordered. Patient placed back in the waiting room pending room availability and results. Medications Administered Discontinued Medications Generic Name Dose Route Start Last Admin Trade Name Freq PRN Reason Stop Dose Admin Diatrizoate Meglum/Diatrizoate Sod 30 ml 05/26/25 23:31 05/26/25 23:31 Diatrizoate Meglumine, Sodium 30 Ml Solution PO 05/26/25 23:32 30 ml ONCE ONE Administration Dicyclomine HCl 10 mg 05/26/25 21:05 05/26/25 21:20 Dicyclomine Hcl 10 Mg Capsule PO 05/26/25 21:06 10 mg ONCE ONE Administration Sodium Chloride 1,000 mls @ 999 mls/hr 05/26/25 21:15 05/26/25 22:57 Ns IV 05/26/25 22:15 Infused .Q1H1M DIAMANTE Infusion Iohexol 100 ml 05/26/25 23:31 05/26/25 23:31 Iohexol 350 Mg/Ml 100 Ml Infus..Btl IV 05/26/25 23:32 85 ml ONCE ONE Administration Ondansetron HCl 4 mg 05/26/25 21:05 05/26/25 21:20 Ondansetron Hcl 4 Mg/2 Ml Vial IVPUSH 05/26/25 21:06 4 mg ONCE ONE Administration Medical Decision Making Medical Decision Making [facility] Narrative: Medical Decision Makin-year-old transgender female with no surgical history with the abdominal pain persistent diarrhea described as dark occasionally blood streaked. Hemoglobin has actually increased from the previous visit 1 week ago. The patient does have persistent tenderness that is significant enough to alarm me and I think it is reasonable to get a comprehensive orally contrasted CT to evaluate better for ulcerative colitis or other inflammatory diseases. The patient may need more urgent expedited follow up with GI for colonoscopy. Hemodynamics are stable No actionable electrolyte derangement. Plan for Bentyl. Stool studies with the patient is able to provide us a sample. Including guaiac CT including oral contrast does not suggest acute active bleed, vascular abnormality inflammatory bowel disease or other acute pathology. The patient's symptoms are quite mild and in fact CBC shows increase in hemoglobin since last presentation I doubt heavy or rapid actively. GI follow up strongly recommended. Symptomatic relief described with [id number] medications. Close follow up with PCP within 2 days. Preliminary Favored Differential Diagnosis: Inflammatory bowel disease, hemorrhoid, AVM, unlikely upper GI bleed given the nonbloody nonbilious vomiting and gross red blood described. No travel or sick contacts to suggest significant infectious or bacterial invasive colitis but this was considered. a janeen additional considered etiologies Testing Interpreted Independently: ?See below for details Radiology or Lab testing Results Reviewed: ?See below for details Consults: ?See below for details Independent Historians/External Chart Reviews: ?See below for details Social Determinants of Health Impacting MDM/Planning: ?See below for details Lab Data 05/26/25 17:59 05/26/25 17:59 Labs: Lab Results 05/26/25 05/27/25 Range/Units 17:59 00:20 WBC 12.1 H (4.8-10.8) X10*3/uL RBC 4.40 L (4.60-5.80) X10*6/uL Hgb 13.3 L (14.0-18.0) g/dl Hct 37.9 L (42.0-52.0) % MCV 86.1 (80.0-98.0) fL MCH 30.2 (27.0-33.0) pg MCHC 35.1 (31.0-36.0) g/dl RDW 12.2 (11.0-16.0) % Plt Count 360 (160-400) X10*3/uL MPV 10.2 (9.4-12.4) fL Immature Gran % (Auto) 0.4 (0.0-0.4) % Neut % (Auto) 60.5 (45-73) % Lymph % (Auto) 27.7 (20-40) % [place] % (Auto) 9.0 (2-11) % Eos % (Auto) 1.5 (0-4) % Baso % (Auto) 0.9 (0-2) % Lymph # (Auto) 3.4 (1.2-4.9) X10*3/uL [place] # (Auto) 1.1 (0.1-1.2) X10*3/uL Eos # (Auto) 0.2 (0.0-0.4) X10*3/uL Baso # (Auto) 0.1 (0.0-0.2) X10*3/uL Abs Immat Gran (auto) 0.05 H (0.00-0.03) X10*3/uL Absolute Neuts (auto) 7.3 (2.0-8.3) x10*3/uL Absolute Nucleated RBC 0.000 (0.0-0.012) X10*3/uL Nucleated RBC % (auto) 0.0 (0.0-0.2) /100WBC Sodium 140 (135-145) mmol/L Potassium 3.6 (3.3-5.1) mmol/L Chloride 106 (96-108) mmol/L Carbon Dioxide 26 (22-29) mmol/L Anion Gap 12 (12-20) BUN 13 (9-16) mg/dL Creatinine 0.91 (0.5-1.4) mg/dL Estim Creat Clear Calc 173.2 Estimated GFR > 60 Random Glucose 99 (60-115) mg/dL Calcium 9.8 (8.4-10.2) mg/dL Total Bilirubin 0.7 (0.0-1.0) mg/dL AST 90 H (5-37) U/L ALT 178 H (0-40) U/L Alkaline Phosphatase 53 (39-117) U/L Total Protein 7.8 (6.5-8.0) g/dL Albumin 5.0 (3.5-5.0) g/dL Urine Color Yellow Urine Appearance Clear Urine pH 5.5 (5.0-9.0) Ur Specific [place] >= 1.030 H (1.005-1.025) Urine Protein Negative (Neg-Trace) mg/dL Urine Glucose (UA) Negative (Negative) mg/dL Urine Ketones Negative (Negative) mg/dL Urine Blood Negative (Negative) Urine Nitrite Negative (Negative) Ur Leukocyte Esterase Negative (Negative) Discharge Plan Discharge Clinical Impression: Hematochezia, Diarrhea Patient Disposition: Home, Self-Care Instructions: Acute Abdominal Pain (DC), Infectious Colitis (ED) Additional Instructions: We have not identified any particular cause of your diarrhea. Your blood counts are reassuring us that you are not losing a substantial amount of blood in your stool. You will need expedited outpatient follow up we strongly recommend you call your primary doctor and they gastroenterology practice that we provided here. Tell them you have been seen in the emergency department twice had imaging and have persistent diarrhea with blood in it we have not yet established a diagnosis. Prescriptions: No Action ondansetron 4 mg tablet,disintegrating 4 mg PO Q6-8H PRN (Reason: nausea and vomiting) Qty: 14 0RF cyclobenzaprine 5 mg tablet 5 mg PO TID PRN (Reason: muscle spasm) 7 Days Qty: 21 0RF prednisone 20 mg tablet 20 mg PO DAILY 7 Days Qty: 7 0RF naproxen 500 mg tablet 500 mg PO BID 7 Days Qty: 14 0RF omeprazole 20 mg capsule,delayed release(DR/EC) 20 mg PO DAILY Qty: 14 0RF prednisone 20 mg tablet 60 mg PO DAILY 2 Days Qty: 6 0RF epinephrine [EpiPen 2-Jono] 0.3 mg/0.3 mL auto-injector 0.3 mg IM Q10M PRN (Reason: anaphylaxis) Qty: 2 0RF Rx Instructions: for 2 doses Referrals: [facility] – [place] [facility] [Provider Group, Gastroenterology] Referral Note: Call the practice tell him we would like you to have expedited to follow up for likely colonoscopy Interventions: ED Discharge Assessment Last Done: 05/27/25 01:50 Discharge Date/Time: 05/27/25 01:52 Print Language: Nepalese
[2025-05-26 17:37] VITALS: BP 136/76; PULSE 85; RESP 18; TEMP 36.1; O2SAT 96; BMI 38.4
[2025-05-26 18:04] LABS: MANUAL DIFF FLAG NO
[2025-05-26 18:19] LABS: Alanine Aminotransferase 178 U/L (0-40); Albumin Level 5.0 g/dL (3.5-5.0); Alkaline Phosphatase 53 U/L (39-117); Anion Gap 12 (12-20); Aspartate Amino Transferase 90 U/L (5-37); Blood Urea Nitrogen 13 mg/dL (9-16); Calcium 9.8 mg/dL (8.4-10.2); Carbon Dioxide 26 mmol/L (22-29); Chloride 106 mmol/L (96-108); Creatinine Clr Calc Pharmacy 173.2; Estimated Glomerular Filt Rate > 60; Potassium 3.6 mmol/L (3.3-5.1); Sodium 140 mmol/L (135-145); Total Protein 7.8 g/dL (6.5-8.0)
[2025-05-26 18:21] LABS: Hematocrit 37.9 % (42.0-52.0); Hemoglobin 13.3 g/dl (14.0-18.0); Imm Gran Abs Auto 0.05 X10*3/uL (0.00-0.03); Imm Gran Pct Auto 0.4 % (0.0-0.4); Lymphocytes Absolute Auto 3.4 X10*3/uL (1.2-4.9); Mean Corpuscular HGB Conc 35.1 g/dl (31.0-36.0); Mean Corpuscular Hemoglobin 30.2 pg (27.0-33.0); Mean Corpuscular Volume 86.1 fL (80.0-98.0); NRBC Abs Auto 0.000 X10*3/uL (0.0-0.012); NRBC Pct Auto 0.0 /100WBC (0.0-0.2); Platelet Count 360 X10*3/uL (160-400); Red Blood Count 4.40 X10*6/uL (4.60-5.80); White Blood Count 12.1 X10*3/uL (4.8-10.8)
[2025-05-26 19:51] VITALS: BP 111/57; PULSE 83; RESP 16; TEMP 36.4; O2SAT 98
--- NOTE | 2025-05-26 19:57 | PC.NURSE ---
pt reports abdominal pain with black tarry stools, pt denies urgency to have a bowel movement and stools are solid in form with very few loose stools intermittently.
--- NOTE | 2025-05-26 22:41 | PC.NURSE ---
pt reports being able to keep his juice down with no nausea, abdominal pain reduced.
[2025-05-26 23:13] VITALS: BP 118/75; PULSE 77; RESP 18; O2SAT 99
[2025-05-26] MEDS: iohexoL 350 MG/ML 100 ML INFUS..BTL IV (23:31)
[2025-05-27 00:33] LABS: Appearance Urine Clear; Glucose Urine UA Negative (Negative); PH 5.5 (5.0-9.0); Specific Gravity - Urine >= 1.030 (1.005-1.025)
[2025-05-27 01:50] VITALS: BP 117/68; PULSE 96; RESP 18; TEMP 36.4; O2SAT 97
== END 2025-05-27 01:52 | disposition home or self-care (01) ==
PROVIDERS: Physician Assistant Medical; Emergency Provider Emergency Medicine; Referring Provider Emergency Medicine
DX: K92.1 Melena (principal); R19.7 Diarrhea, unspecified; R11.0 Nausea; R10.9 Unspecified abdominal pain
CPT/HCPCS: 36415; 74177; 80053; 81003; 85025; 96361; 96374; 99284; J2405; Q9967

== ENCOUNTER → 2025-05-26 21:05 | Outpatient (BNV) | payer OTHER, SELFPAY | PROVIDERS: Emergency Provider Emergency Medicine; Visit Provider Radiology Diagnostic Radiology | DX: K92.1 Melena (principal) | CPT/HCPCS: 74177 ==